=== PATIENT | female | born 1945 ===

== ENCOUNTER 2022-09-06 12:07 | Observation (INO) ==
[2022-09-06] MEDS ORDERED: WATER, STERILE FOR INJ 10 ML VIAL ONE (12:35)
[2022-09-06] MEDS ORDERED: LIDOCAINE 1% LOCAL 20 ML VIAL ONE (12:35)
[2022-09-06] MEDS ORDERED: VANCOMYCIN HCL 1000MG/20ML VIAL ONE (12:35)
[2022-09-06] MEDS ORDERED: ceFAZolin 330 MG/ML 1 GM VIAL ONE (13:09)
[2022-09-06] MEDS ORDERED: MIDAZOLAM HCL 5 MG/ML 1 ML VIAL ONE (13:09)
[2022-09-06] MEDS ORDERED: fentaNYL citrate 100 MCG/2 ML VIAL ONE (13:09)
--- NOTE | 2022-09-06 13:09 | Pre Anesthesia Assessment ---
Date of Service September 06, 2022 Pre Sedation Assessment Vital Signs Temp Pulse Resp BP Pulse Ox O2 Del Method 09/06/22 12:25 36.2 C L 72 18 137/59 L 98 Room Air Cardiovascular RRR, no murmur, no edema Respiratory normal respiratory effort, lungs clear to auscultation Pre-Sedation Airway Assessment Smoking Status: Former smoker Hx Sleep Apnea: No Short, Thick Neck: No Thyromental Distance: > or= 3.5 Finger Breadths Oral Cavity: + Dentures and + WNL Mallampati Class: III ASA: ASA3 NPO Status Date of Last Intake of Fluids: 09/05/22 Time of Last Intake of Fluids: 21:00 Date of Last Intake of Solid Food: 09/05/22 Time of Last Intake of Solid Foods: 17:00 Procedure Planning Contraindications for Sedation: none Current Medications Reviewed: Yes Notes The planned sedation has been discussed with the patient. Informed Consent was obtained. I have identified the patient, determined the appropriateness of sedation and have assessed the patient immediately prior to the procedure. All medicine(s) and interventions are by my order.
--- NOTE | 2022-09-06 13:09 | History & Physical Bridge Note ---
Date of Service September 06, 2022 History & Physical Bridge Note I have examined the patient, reviewed the History & Physical and in the interval since the performance of the History & Physical I have noted the following changes of clinical significance: no changes noted. I reviewed the indications, procedure, risks and alternatives with the patient, and answered all questions. Patient understands and agrees to the procedure. Consent obtained. I also reviewed the risks and use of sedation, patient understands and consent obtained.
[2022-09-06] MEDS ORDERED: BACITRACIN OINT 0.9 GM PKT ONE (14:54)
--- NOTE | 2022-09-06 14:58 | Electrophysiology Report ---
Date of Service September 06, 2022 Electrophysiology Procedure Electrophysiology Procedure Report Preoperative diagnosis: Left bundle branch block, cardiomyopathy, congestive heart failure Postoperative diagnosis: Same Procedure: Left subclavian venogram Atrial and ventricular defibrillator lead implantation Coronary sinus angiography Left ventricular lead implantation Biventricular ICD implantation Surgeon: Glynn Gusman MD Estimated blood loss: 70 cc Complications: None Disposition: Cardiology recovery Procedure details: After obtaining informed consent for the procedure, the patient was brought to the laboratory and prepped and draped in the standard sterile manner. Dye was injected the left arm IV site to opacify the left subclavian vein. The subclavian vein was identified and found to be free of obst ruction. The left prepectoral region was anesthetized with 1% lidocaine local anesthetic and left axillary venipuncture was performed by percutaneous technique and a guidewire placed through the left subclavian vein into the superior vena cava. The area was further infiltrated with 1% lidocaine local anesthetic and a 5 cm incision was made parallel to the left clavicle and 2 cm below it and carried down to the anterior pectoralis fascia. An ICD pocket was formed by blunt dissection anterior to the pectoralis fascia and a vancomycin- soaked sponge was placed in the pocket. A 10.5 [place] [employer] lead introducer was placed over the guidewire into the left subclavian vein, the dilator and guidewire were removed and a bipolar active fixation steroid tipped ventricular ICD lead was advanced through the introducer into the superior vena cava. A guidewire was placed through the introducer and the introducer was stripped from the lead and guidewire. An 8 [place] [employer] lead introducer was placed over the guidewire into the left subclavian vein, the dilator and guidewire were removed and a bipolar active fixation steroid tipped atrial lead was advanced through the introducer into the superior vena cava. A guidewire was placed back through the introducer and the introducer was stripped from the lead and guidewire. Using a curved stylette the ventricular lead was advanced through the right ventricular outflow tract into the pulmonary artery and then using a straight stylette was positioned in the right ventricular apex. The screw was extended fixing the lead in position. Pacing and sensing thresholds were evaluated in bipolar configuration and are recorded on the implant data sheet. Diaphragmatic pacing was evaluated at full bipolar output as indicated on the data sheet. Usin g a curved stylette the atrial lead was positioned in the region of the atrial appendage and the screw extended fixing the lead in position. Pacing and sensing thresholds were evaluated in bipolar configuration and are recorded on the implant data sheet. Diaphragmatic pacing was evaluated at full bipolar output as indicated on the data sheet. Once the leads were in position they were attached to the anterior pectoralis fascia using 1 suture of 2-0 silk around each lead collar. The short guidewire was exchanged for a long guidewire and a Sunny coronary sinus sheath was advanced to position in the right atrium. A guiding catheter was placed through the sheath and using x-ray dye the os of the coronary sinus was identified. A guidewire was placed through the introducer into the coronary sinus and the Sunny sheath was advanced into the coronary sinus. A balloon occlusion catheter was advanced through this sheath into the coronary sinus, the balloon was inflated and dye was injected in various projections to obtain a coronary sinus angiogram. A good vessel was identified and a 0.014 inch guidewire was advanced into this vessel. A quadripolar coronary sinus catheter was advanced over the guidewire into good distal position. The left ventricular pacing threshold was evaluated in various configurations, as recorded on the implant data sheet. Diaphragmatic pacing was evaluated at full output, as indicated on the data sheet. Once this lead was in position the introducer system was removed from the lead and the lead was attached to the anterior pectoral fascia using 2 sutures of 2-0 silk around the lead collar. An additional suture of 2-0 silk was placed around each of the atrial and ventricular lead collars as well. The vancomycin-soaked sponge was removed from the pocket, hemostasis was obtained, the ICD was attached to the leads and placed in the pocket with the leads coiled beneath it. The incision was closed with a running double subcutaneous closure of 3-0 Vicryl absorbable suture, followed by running subcuticular skin closure of 4-0 Vicryl absorbable suture. Bacitracin ointment was placed on the incision and a pressure dressing applied. [facility] Electrophysiology codes Indication for Procedure (1) Systolic CHF, chronic: (2) Nonischemic cardiomyopathy: (3) LBBB (left bundle branch block): Pacing Procedure 1: Pacin BiV electrode w/Pacer / ICD implant, add on code ICD Procedure 1: ICD: 55944 Insert single or dual ICD system Miscellaneous Procedures Procedure 1: EP Miscellaneous: 56312 Contrast injection for venography Procedure 2: EP Miscellaneous: 55733-07 Vengraphy, extremity Procedure 3: EP Miscellaneous: 70757-25 Venography, CS supevsion/interp PG Moderate Sedation Codes Moderate Sedation Codes Procedure 1: Sedation/Anesthesia: 73364 Mod Sedation by the same physician;Init15 Min Child Age 5 & Up Procedure 2: Sedation/Anesthesia: 51508 Mod Sedation by the same physician; Ea [id number] Minutes
[2022-09-06] MEDS ORDERED: ACETAMINOPHEN 325 MG TAB PO PRN (15:01)
[2022-09-06] MEDS ORDERED: ACETAMINOPHEN W/CODEINE #3 1 TAB PO PRN (15:01)
[2022-09-06] MEDS ORDERED: TEMAZEPAM 15 MG CAPSULE PO PRN (15:03)
[2022-09-06] MEDS ORDERED: oxyCODONE/ACETAMINOPHEN 10-325 TAB PO PRN (15:03)
[2022-09-06] MEDS ORDERED: ALBUT/IPRATROP 3MG/0.5MG NEB 3 ML VIAL INH PRN (15:03)
[2022-09-06] MEDS ORDERED: ALENDRONATE SODIUM 70 MG TAB PO SCH (15:15)
[2022-09-06] MEDS ORDERED: ABATACEPT 125 MG/ML SQ SCH (15:15)
[2022-09-06] MEDS ORDERED: metHOTREXate sodium 2.5 MG TAB PO SCH (15:15)
[2022-09-06] MEDS: SUCRALFATE 1 GM TAB PO SCH ×2 (16:56→20:53)
[2022-09-06] MEDS: GABAPENTIN 300 MG CAP PO SCH (20:52)
[2022-09-06] MEDS: carvediloL 3.125 MG TAB PO SCH (20:52)
[2022-09-06] MEDS ORDERED: MIRTAZAPINE TAB 15 MG TAB PO SCH (21:00)
[2022-09-06] MEDS ORDERED: FEXOFENADINE HCL 180 MG TAB PO SCH (21:00)
[2022-09-07 06:48] LABS: Hematocrit (blood only) 39.6 % (37.0-47.0); Hemoglobin 13.4 g/dl (12.0-16.0); Mean Corpuscular Hemoglobin 32.6 pg (25.0-34.0); Mean Corpuscular Hgb Conc 33.8 g/dL (32.0-36.0); Mean Corpuscular Volume 96.4 fL (80.0-100.0); Mean Platelet Volume 10.4 fL (9.4-12.4); Platelet Count 173 K/uL (130-400); RDW Coefficient of Variation 14.2 % (11.5-14.5); Red Blood Count 4.11 M/uL (4.20-5.40); White Blood Count 8.38 K/ul (4.8-10.8)
[2022-09-07 07:05] LABS: Calcium 9.3 mg/dl (8.5-10.1); Creatinine Clr Calc Pharmacy 32.9 ml/min; Est GFR (African American) 58.4 ml/min; Est GFR (Non-African American) 50.4 ml/min; Potassium 4.6 mmol/L (3.5-5.1)
[2022-09-07] MEDS ORDERED: FAMOTIDINE 40 MG TABLET PO SCH (09:00)
[2022-09-07] MEDS ORDERED: FUROSEMIDE 20 MG TAB PO SCH (09:00)
[2022-09-07] MEDS ORDERED: SERTRALINE HCL 100 MG TABLET PO SCH (09:00)
[2022-09-07] MEDS ORDERED: FLUTICASONE/VILANTEROL 100/25MCG 14 PUFFS/INHALER INH SCH (09:00)
[2022-09-07] MEDS ORDERED: PANTOprazole 40 MG TAB PO SCH (09:00)
[2022-09-07] MEDS ORDERED: lisinopril 10 MG TAB PO SCH (09:00)
[2022-09-07] MEDS ORDERED: MONTELUKAST SODIUM 10 MG TABLET PO SCH (09:00)
[2022-09-07] MEDS ORDERED: FOLIC ACID 1 MG TAB PO SCH (09:00)
[2022-09-07] MEDS ORDERED: amLODIPine BESYLATE 5 MG TAB PO SCH (09:00)
--- NOTE | 2022-09-07 09:25 | XRay Report ---
XR chest 2V PA/lateral CLINICAL HISTORY: EXACT TIME ORDERED Evaluate for pneumothorax and l TECHNIQUE: 2 views of the chest were obtained. Comparison: None available at the time of this dictation. FINDINGS: Pacemaker defibrillator is seen. Calcified aortic knob is seen. The lungs are clear. Blunting of the right costophrenic angle may represent scarring, less likely trace effusion. No pneumothorax is seen. IMPRESSION: Satisfactory appearance of pacemaker defibrillator without evidence of pneumothorax. ACT 112: Negative or not required by law. Electronically signed by: Raudel Varghese M.D. 09/07/2022 9:24 AM
[2022-09-07] MEDS: SUCRALFATE 1 GM TAB PO SCH (09:42)
[2022-09-07] MEDS: carvediloL 3.125 MG TAB PO SCH (09:43)
[2022-09-07] MEDS: GABAPENTIN 300 MG CAP PO SCH (09:43)
--- NOTE | 2022-09-07 11:06 | Cardiology Progress Note ---
Date of Service September 07, 2022 Assessment & Plan (1) Systolic CHF, chronic: (2) Nonischemic cardiomyopathy: (3) LBBB (left bundle branch block): (4) Status post implantation of automatic cardioverter/defibrillator (AICD): Plan 1. CHF: Currently she does not appear to be in heart failure from fluid overload, hopefully with biventricular pacing her heart failure symptoms will improve. 2. Cardiomyopathy: I am hopeful that her cardiomyopathy will improve over time, at the moment I am not going to adjust her medications but we may want to increase her heart failure medications in the future. 3. Left bundle branch block: Her device is doing a very good job of electrical resynchronization based on the electrocardiogram. 4. Postop day #1: She is doing very well 1 day following biventricular ICD implantation. The site looks good, she feels well, the leads are in good p osition and the device is working well. She is stable for discharge. Admission and Anticipated Discharge Date Admission Date: September 06, 2022 Subjective She is feeling well today. She has no chest discomfort, only minor incisional discomfort, no shortness of breath. Physical Exam Physical Exam: The pacemaker site is clean and dry, minor ecchymosis. No swelling and minimal tenderness. Lungs are clear Cardiac rhythm is regular with no rub Results & Data ([facility]) Vital Signs (Past 12 Hours) Vital Signs Temp Pulse Pulse Resp BP Pulse Ox O2 Del Method 09/07/22 10:06 60 09/07/22 08:00 36.5 C 72 16 100/60 96 Room Air 09/07/22 02:43 36.5 C 64 18 96/54 L 96 Room Air 09/06/22 23:11 36.4 C L 61 16 98/56 L 95 Room Air Laboratory Results CBC 09/07/22 Range/Units 06:02 WBC 8.38 (4.8-10.8) K/ul RBC 4.11 L (4.20-5.40) M/uL Hgb 13.4 (12.0-16.0) g/dl Hct 39.6 (37.0-47.0) % Plt Count 173 (130-400) K/uL Comprehensive Metabolic Panel 09/07/22 Range/Units 06:02 Sodium 140 (136-145) mmol/L Potassium 4.6 (3.5-5.1) mmol/L Chloride 107 (98-107) mmol/L Carbon Dioxide 28 (21-32) mmol/L BUN 31 H (6-23) mg/dl Creatinine 1.07 (0.6-1.2) mg/dl Glucose 66 L (70-99(Fasting)) mg/dl Calcium 9.3 (8.5-10.1) mg/dl Intake and Output 09/07/22 09/07/22 09/07/22 06:59 14:59 22:59 Intake Total 160 / 160 Output Total 300 / 300 Balance -140 / -140 Intake: Oral 160 / 160 Output: Urine 300 / 300 Other: Weight 46.6 kg 46.6 kg Weight Measurement Method Built in [facility] Patient Weight 09/08/22 06:59 Weight 46.6 kg Diagnostic Findings Postop ECG: Excellent biventricular paced complex. Telemetry: Appropriate biventricular paced ICD function. Chest x-ray: Good lead position, no pneumothorax ICD evaluation: Excellent pacing and sensing characteristics PG Care Time/CCT Total # of Minutes Spent Total Time Spent with Patient: Total time spent is greater than 50% in coordination of care (as documented) at patient's floor/unit and/or counseling patient: Coding Level of Care Code 64652 Post Operative Follow-Up Diagnoses Systolic CHF, chronic I50.22 Nonischemic cardiomyopathy I42.8 LBBB (left bundle branch block) I44.7 Status post implantation of automatic cardioverter/defibrillator (AICD) Z95.810 CPT Codes Implantable Defib Multi lead programming - 73793 ([id number])
--- NOTE | 2022-09-08 05:48 | Electrocardiogram Report ---
Test Reason : Blood Pressure : / mmHG Vent. Rate : 070 BPM Atrial Rate : 070 BPM P-R Int : 162 ms QRS Dur : 138 ms QT Int : 474 ms P-R-T Axes : 059 -89 083 degrees QTc Int : 511 ms Atrial-sensed ventricular-paced rhythm with occasional AV dual-paced complexes and with occasional Pr emature ventricular complexes Abnormal ECG When compared with ECG of 02-SEP-2022 10:50, (unconfirmed) Electronic ventricular pacemaker has replaced Sinus rhythm Confirmed by Glynn Gusman ([id number]) on 09/08/2022 5:47:26 AM Referred By: Glynn Gusman Confirmed By:Glynn Gusman
== END 2022-09-07 11:48 | disposition home or self-care (01) ==
LOC: EP 12:07 → 2E 12:07
PROC: EPB.ICD (2022-09-06 13:00)